=== PATIENT | female | born 1950 | race Two or more races ===

== ENCOUNTER 2020-07-15 08:12 | Outpatient (CLI) | payer OTHER | END 2020-07-15 08:15 | disposition home or self-care (01) | LOC: RAD 08:12 | PROVIDERS: ATTEND Specialist | DX: J45.998 Other asthma (principal); E03.8 Other specified hypothyroidism; J45.20 Mild intermittent asthma, uncomplicated; I10 Essential (primary) hypertension; E78.2 Mixed hyperlipidemia; H25.13 Age-related nuclear cataract, bilateral; Z68.28 Body mass index [BMI] 28.0-28.9, adult ==

== ENCOUNTER 2020-07-17 10:13 | Outpatient (CLI) | payer OTHER | END 2020-07-17 10:21 | disposition home or self-care (01) | LOC: NUCLEAR 10:13 | PROVIDERS: ATTEND Specialist | DX: M81.0 Age-related osteoporosis without current pathological fracture (principal); Z68.28 Body mass index [BMI] 28.0-28.9, adult; H25.10 Age-related nuclear cataract, unspecified eye; I87.2 Venous insufficiency (chronic) (peripheral); I10 Essential (primary) hypertension; E78.2 Mixed hyperlipidemia; E03.8 Other specified hypothyroidism; J45.20 Mild intermittent asthma, uncomplicated; I67.2 Cerebral atherosclerosis ==

== ENCOUNTER 2020-07-29 07:38 | Outpatient (CLI) | payer OTHER | END 2020-07-29 07:40 | disposition home or self-care (01) | LOC: RAD 07:38 | PROVIDERS: ATTEND Internal Medicine Rheumatology | DX: M43.8X7 Other specified deforming dorsopathies, lumbosacral region (principal); M54.5 Low back pain ==

== ENCOUNTER 2022-07-18 08:54 | Outpatient (CLI) | payer OTHER | END 2022-07-18 08:58 | disposition home or self-care (01) | LOC: NUCLEAR 08:54 | PROVIDERS: ATTEND Specialist | DX: M81.0 Age-related osteoporosis without current pathological fracture (principal) ==

== ENCOUNTER → 2025-03-10 10:38 | Outpatient (CLI) | payer OTHER | END | disposition home or self-care (01) | LOC: NUCLEAR 10:38 | PROVIDERS: ATTEND Internal Medicine Rheumatology | DX: M81.0 Age-related osteoporosis without current pathological fracture (principal) ==